=== PATIENT | male | born 1960 | race Two or more races ===

== ENCOUNTER 2017-09-10 09:08 | Emergency (ER) | payer OTHER ==
[2017-09-10 09:16] VITALS: TEMP 98.4; BMI 29.9
--- NOTE | 2017-09-10 09:54 | PDOC ---
History of Present Illness - General Chief Complaint: Weakness Stated Complaint: FEVER, BODYACHES Time Seen by Provider: 09/10/17 09:34 History Source: Patient Exam Limitations: No Limitations - History of Present Illness Initial Comments: CHIEF COMPLAINT: 57 y/o afebrile male with PMH HTN, HLD, ACS with stents on Plavix and digoxin, CHF c/o flu like symptoms x 4 days. HISTORY OF PRESENT ILLNESS: The patient states he flew in from [place] 4 days ago and ever since has felt warm, had the chills, had a cough, diarrhea and had body aches. He took nyquil yesterday. He denies CP, SOB, vomiting. The patient does not have a physician here, goes back and forth to [place] for medical care and medications. Vital signs on arrival are within normal limits. REVIEW OF SYSTEMS: GENERAL/CONSTITUTIONAL: Subjective fever/chills. +body aches. No weakness. No weight change. HEAD, EYES, EARS, NOSE AND THROAT: No change in vision. No ear pain or discharge. No sore throat. CARDIOVASCULAR: No chest pain or shortness of breath. RESPIRATORY: +cough. No wheezing or hemoptysis. GASTROINTESTINAL: +diarrhea. No vomiting. GENITOURINARY: No dysuria, frequency, or change in urination. MUSCULOSKELETAL: No joint or muscle swelling or pain. No neck or back pain. SKIN: No rash or easy bruising. NEUROLOGIC: +headache. No vertigo, loss of consciousness, or loss of sensation. PHYSICAL EXAM: GENERAL: The patient is awake, alert, and fully oriented, in no acute distress. HEAD: Normal with no signs of trauma. ENT: Pupils equal, round and reactive to light, extraocular movements intact, sclera anicteric, conjunctiva clear. Neck supple. LUNGS: Clear to auscultation bilaterally. Normal excursion. No respiratory distress or use of accessory muscles. CV: RRR, S1/S2, no MRG. Cap refill < 2 sec. ABDOMEN: Soft, non-distended, non-tender even to deep palpation, no hepatomegaly or splenomegaly, no masses. Normal BS x 4 quadrants. No rebound, guarding or rigidity. EXTREMITIES: Normal range of motion, no edema. NEUROLOGICAL: Normal speech, normal gait. CN II-XII grossly intact. PSYCH: Normal mood, normal affect. SKIN: Warm, dry, normal turgor, no rashes or lesions noted. Past History - Past Medical History Allergies/Adverse Reactions: Allergies Allergy/AdvReac Type Severity Reaction Status Date / Time No Known Allergies Allergy Verified 09/10/17 09:10 Cardiac Disorders: Yes (cad) COPD: No HTN: Yes Hypercholesterolemia: Yes - Surgical History Cardiac Surgery: Yes (card stent) - Suicide/Smoking/Psychosocial Hx Smoking History: Never smoked Have you smoked in the past 12 months: No Information on smoking cessation initiated: No Hx Alcohol Use: No Drug/Substance Use Hx: No Substance Use Type: None *Physical Exam - Vital Signs Last Vital Signs Temp Pulse Resp BP Pulse Ox 98.4 F 85 18 117/72 100 09/10/17 09:11 09/10/17 09:11 09/10/17 09:11 09/10/17 09:11 09/10/17 09:11 Heart Score/ECG Review - ECG Intrepretation Comment:: Twelve-lead EKG was performed and reviewed by Dr. Geller. There is normal sinus rhythm with a normal rate. Rightward axis. The intervals are normal. Nonspecific ST abnormality. Impression: Abnormal twelve-lead EKG ED Treatment Course - LABORATORY CBC & Chemistry Diagram: 09/10/17 10:53 09/10/17 11:11 Medical Decision Making - Medical Decision Making A/P: 57 y/o afebrile male here on day 4 of flu like symptoms. Plan is as follows: 1. EKG 2. Tylenol 3. Labs 4. IV fluids The patient states he feels much better. Labs show leukocytosis with left shift but part of that probably has to do with dehydration. Will send 3 day course of cipro to treat travelers diarrhea. instructed him to take tylenol for fever every 4 hours and drink plenty of fluids. Pt instructed to return to the ER with any worsening or concerning symptoms. The patient verbalizes understanding of all instructions, has no further questions and is awaiting discharge. *DC/Admit/Observation/Transfer Diagnosis at time of Disposition: Travelers' diarrhea, Flu-like symptoms - Discharge Dispostion Disposition: HOME Condition at time of disposition: Improved - Referrals - Patient Instructions Printed Discharge Instructions: DI for Diarrhea and Traveler's Diarrhea -- Adult, DI for Viral Syndrome Additional Instructions: Discharge Instructions: -You have diarrhea and a flu like illness -A prescription has been sent to your pharmacy for 3 days of antibiotics -Please drink at least 64oz of fluids daily -Please take 650mng of over the counter tylenol every 4-6 hours for fever/chills -Return to the ER with any worsening or concerning symptoms. Instrucciones de descarga: -Tienes diarrea y natty enfermedad similar a la gripe -Natty receta dubon sido enviada a tubbs farmacia por 3 hurley de antibiticos -Por favor belen al menos 64 oz de lquidos al da -Por favor tome 650mng de Tylenol sin receta cada 4-6 horas para la fiebre / escalofros. -Volver a la meli de emergencias con cualquier empeoramiento o sntomas. Print Language: SINHALA - Post Discharge Activity
[2017-09-10] MEDS ORDERED: ACETAMINOPHEN 325 MG TABLET (FP) PO ONE (09:55)
[2017-09-10] MEDS ORDERED: ACETAMINOPHEN 325 MG TABLET (FP) ONE (10:27)
[2017-09-10] MEDS ORDERED: SODIUM CHLORIDE 1,000 ML IV STA (10:57)
--- NOTE | 2017-09-10 11:09 | EKG ---
Test Reason : Blood Pressure : / mmHG Vent. Rate : 073 BPM Atrial Rate : 073 BPM P-R Int : 154 ms QRS Dur : 100 ms QT Int : 372 ms P-R-T Axes : 047 095 038 degrees QTc Int : 409 ms NORMAL SINUS RHYTHM POSSIBLE LEFT ATRIAL ENLARGEMENT RIGHTWARD AXIS NONSPECIFIC ST ABNORMALITY ABNORMAL ECG NO PREVIOUS ECGS AVAILABLE Confirmed by ELLI GROSS MD ([id number]) on 09/10/2017 11:09:21 AM Referred By: Confirmed By:ELLI GROSS MD
[2017-09-10 11:30] LABS: BASO % 0.2 % (0-2.0); EOS % 0.1 % (0-4.5); HEMATOCRIT 52.7 % (35.4-49); HEMOGLOBIN 18.1 GM/dL (11.7-16.9); LYMPH % 5.5 % (8-40); MCH 31.8 pg (25.7-33.7); MCHC 34.3 g/dl (32.0-35.9); MEAN CELL VOLUME 92.5 fl (80-96); MEAN PLT VOLUME 10.7 fl (7.5-11.1); NEUT % 87.2 % (42.8-82.8); RDW 14.3 % (11.9-15.9); WHITE BLOOD COUNT 12.2 K/mm3 (4.0-10.0)
[2017-09-10 11:45] LABS: ALBUMIN 2.8 g/dl (3.4-5.0); ANION GAP 9 (8-16); BILIRUBIN,TOTAL 1.2 mg/dL (0.2-1.0); BLOOD UREA NITROGEN 8 mg/dL (7-18); CALCIUM 7.5 mg/dL (8.5-10.1); CHLORIDE 101 mmol/L (98-107); CO2 25 mmol/L (21-32); GLUCOSE,RANDOM 141 mg/dL (74-106); POTASSIUM 3.5 mmol/L (3.5-5.1); SGOT/AST 14 U/L (15-37); SGPT/ALT 28 U/L (12-78); SODIUM 135 mmol/L (136-145); TOT PROT 6.2 g/dl (6.4-8.2)
[2017-09-10 11:47] LABS: ALK PHOS 85 U/L (45-117)
[2017-09-10 12:08] LABS: PLATELET COUNT 74 K/MM3 (134-434)
[2017-09-10 12:34] VITALS: BP 100/51; PULSE 67
== END 2017-09-10 12:30 | disposition home or self-care (01) ==
LOC: JER 09:08
PROC: 3E0337Z Introduction of Electrolytic and Water Balance Substance into Peripheral Vein, Percutaneous Approach (ICD-10-PCS; principal; 2017-09-10)
DX: J11.2 Influenza due to unidentified influenza virus with gastrointestinal manifestations (principal); E86.0 Dehydration
CPT/HCPCS: 36415; 80053; 82550; 84484; 85025; 93005; 93010; 99285-25; J7030